=== PATIENT | female | born 1970 | race Caucasian/White ===

== ENCOUNTER 2016-08-15 08:38 | Emergency (ER) | payer OTHER ==
--- NOTE | ~2016-08-15 | US85 ---
[facility] A Service of [facility] & [facility] RADIOLOGY TEXT RESULTS PATIENT: LEELA LEYVA LOCATION: SED : 74 UNIT #: [id number] AGE: [address]: Meliton Castillo DO SEX: F ORDER DR: [id number] [address] [address] [id number] E MR#: [id number] Acc #: [id number] NAME: LEELA LEYVA : 1970 SEX: F STUDY DATE/TIME: 08/15/2016 9:12 UNIT: SED ROOM: STUDY DESCRIPTION: [facility] [place] [employer] Attending Physician: Meliton Castillo Ordering Physician: Meliton Castillo Primary Care Physician: Mauri Burleson M.D. MEDICAL IMAGING REPORT This report is preliminary unless electronic signature is present. EXAM Left lower extremity venous ultrasound INDICATION Swelling, pain and pressure for 1.5 months. TECHNIQUE Venous ultrasound examination of the left lower extremity was performed using grayscale, spectral Doppler and color flow Doppler imaging. FINDINGS The examination is negative. There is no evidence of left lower extremity deep venous thrombus from the groin to the lower calf. Visualized greater saphenous vein is also patent. IMPRESSION Negative examination. No evidence of left lower extremity deep venous thrombosis. Dictated by... Ricky Camargo M.D. THIS IS AN ELECTRONICALLY VERIFIED REPORT Ricky Camargo M.D. at 08/15/2016 4:07 PM OSMAR/lily TD: 08/15/2016 11:19 JOB #: [id number] MEDICAL IMAGING REPORT Page 1 of 1
--- NOTE | ~2016-08-15 | CR169 ---
[facility] A Service of [facility] & [facility] RADIOLOGY TEXT RESULTS PATIENT: LEELA LEYVA LOCATION: SED : 74 UNIT #: [id number] AGE: [address]: Meliton Castillo DO SEX: F ORDER DR: [id number] [place] [id number] E MR#: [id number] Acc #: [id number] NAME: LEELA LEYVA : 1970 SEX: F STUDY DATE/TIME: 08/15/2016 9:30 UNIT: SED ROOM: STUDY DESCRIPTION: CR Knee 2 Views Lt Attending Physician: Meliton Castillo Ordering Physician: Meliton Castillo Primary Care Physician: Mauri Burleson M.D. MEDICAL IMAGING REPORT This report is preliminary unless electronic signature is present. EXAM Left knee 2 views, 08/15/2016 HISTORY Left popliteal pain. Symptoms for 2 weeks. FINDINGS AP and lateral projection of the knee shows smooth articular anatomy without indication of fracture or dislocation at the major weight-bearing surface of the knee. There is no indication of radiopaque foreign body about the knee surface or joint effusion. IMPRESSION Normal knee. Dictated by... Ye Cortes M.D. THIS IS AN ELECTRONICALLY VERIFIED REPORT Ye Cortes M.D. at 08/15/2016 3:53 PM SOTO/george TD: 08/15/2016 11:00 JOB #: [id number] MEDICAL IMAGING REPORT Page 1 of 1
[~2016-08-15 08:38] MED LIST: ALBUTEROL17 GM INH; ALEVE; ALPRAZOLAM PO; AMOXICILLIN PO; BACTRIM DS TABL1 TA1 PO; BENADRYL25 M1 PO; BENADRYL25 M3 PO; CAFFEINE PO; COLACE PO; DILAUDID PO; DILAUDID4 MG PO; ESKALITH PO; IBUPROFEN PO; LEVOTHYROXINE75 MCG PO; LITHIUM CARBONATE; LITHIUM PO; LORTAB 10-5001 EACH PO; LORTAB 10/500 T1 TAB PO; MAGIC MOUTHWASH PO; MEDROL PO; MORPHINE IR PO; MORPHINE PUMP; NAPROXEN PO; NATURAL SENNA8.6 MG PO; NEXIUM PO; OPANA ER40 MG PO; ORUDIS75 M1 PO; OXYCONTIN PO; PEPCID AC20 M2 PO; PERMETHRIN60 GM TP; PHENERGAN PO; PHENERGAN25 M1 PO; PREDNISONE PO; PROTONIX PO; ROBAXIN500 MG PO; ROXICODONE30 M1; SYNTHROID PO; VITAMIN D50000 UNIT PO; VOLTAREN75 MG PO; ZITHROMAX PO; [UNRECOGNIZED DRUG - OTHER]
[2016-08-15] MEDS ORDERED: PREVACID PO (08:47)
== END 2016-08-15 09:54 | disposition home or self-care (01) ==
LOC: SED 08:38
DX: M25.562 Pain in left knee (principal); Z88.5 Allergy status to narcotic agent; Z91.040 Latex allergy status; M79.89 Other specified soft tissue disorders
CPT/HCPCS: 29530; 73560; 93971; 99284